=== PATIENT | male | born 1990 | race Two or more races ===

== ENCOUNTER 2021-05-09 21:11 | Outpatient (CLI) | payer OTHER | END 2021-05-09 23:00 | disposition home or self-care (01) | LOC: LAB 21:11 | DX: Z20.818 Contact with and (suspected) exposure to other bacterial communicable diseases (principal); Z20.828 Contact with and (suspected) exposure to other viral communicable diseases ==

== ENCOUNTER 2022-08-16 15:21 | Outpatient (CLI) | payer OTHER | END 2022-08-16 23:00 | disposition home or self-care (01) | LOC: LAB 15:21 | PROVIDERS: ATTEND Obstetrics & Gynecology | DX: Z20.828 Contact with and (suspected) exposure to other viral communicable diseases (principal); Z20.818 Contact with and (suspected) exposure to other bacterial communicable diseases ==